=== PATIENT | female | born 1950 | race Caucasian/White ===

== ENCOUNTER 2017-10-24 14:22 | Outpatient (CLI) | payer OTHER | END 2017-10-24 14:27 | disposition home or self-care (01) | LOC: RAD 14:22 | DX: Z01.818 Encounter for other preprocedural examination (principal) ==

== ENCOUNTER 2017-10-31 12:00 | Inpatient (IN) | payer OTHER ==
[~2017-10-31] VITALS: Ht 154.9 cm; Wt 54.4 kg
[2017-10-31] MEDS ORDERED: CRESTOR20 MG PO (14:18)
[2017-10-31] MEDS ORDERED: ZANTAC300 MG PO (14:19)
[2017-10-31] MEDS ORDERED: [UNRECOGNIZED DRUG - SUPPLY] (14:19)
[2017-10-31] MEDS ORDERED: CO Q-1050 MG PO (14:19)
[2017-10-31] MEDS ORDERED: ASA81 MG PO (14:19)
[2017-10-31] MEDS ORDERED: CENTRUM SILVER1 EAC2 PO (14:20)
[2017-10-31] MEDS ORDERED: CALCIUM500 M2 PO (14:20)
[2017-10-31] MEDS ORDERED: VITAMIN D400 UNI5 PO (14:20)
[2017-10-31] MEDS ORDERED: PROLIA60 MG/1 ML (14:21)
[2017-10-31] MEDS ORDERED: XANAX0.25 MG PO (14:21)
== END 2017-11-06 17:57 | disposition home or self-care (01) | DRG 331 ==
LOC: SURH 11-03 05:37 → O/R 11-03 05:37 → OB/GYN 11-03 07:00 → SURH 11-03 14:40
PROVIDERS: Colon & Rectal Surgery
PROC: 0DJD8ZZ Inspection of Lower Intestinal Tract, Via Natural or Artificial Opening Endoscopic (ICD-10-PCS; 2017-11-03)
PROC: 0DTN4ZZ Resection of Sigmoid Colon, Percutaneous Endoscopic Approach (ICD-10-PCS; principal; 2017-11-03 07:00)
DX: K57.32 Diverticulitis of large intestine without perforation or abscess without bleeding (principal); M72.2 Plantar fascial fibromatosis

== ENCOUNTER 2017-11-13 13:03 | Emergency (ER) | payer OTHER ==
[~2017-11-13] VITALS: Ht 154.9 cm; Wt 53.1 kg
[~2017-11-13 13:03] MED LIST: ASA81 MG PO; CALCIUM500 M2 PO; CENTRUM SILVER1 EAC2 PO; CO Q-1050 MG PO; CRESTOR20 MG PO; PROLIA60 MG/1 ML; VITAMIN D400 UNI5 PO; XANAX0.25 MG PO; ZANTAC300 MG PO; [UNRECOGNIZED DRUG - SUPPLY]
== END 2017-11-13 18:19 | disposition home or self-care (01) ==
LOC: ER 13:03
DX: R06.02 Shortness of breath (principal)

== ENCOUNTER 2018-10-17 09:00 | Day surgery (SDC) | payer OTHER | END 2018-10-17 14:30 | disposition home or self-care (01) | LOC: AMB-ENDOS 09:00 | DX: K62.5 Hemorrhage of anus and rectum (principal); K64.8 Other hemorrhoids; L92.8 Other granulomatous disorders of the skin and subcutaneous tissue; Z12.11 Encounter for screening for malignant neoplasm of colon ==

== ENCOUNTER 2020-06-03 06:41 | Day surgery (SDC) | payer OTHER | END 2020-06-03 10:55 | disposition home or self-care (01) | LOC: AMB-ENDOS 06:41 | PROVIDERS: ATTEND Colon & Rectal Surgery | DX: K62.89 Other specified diseases of anus and rectum (principal); Z12.11 Encounter for screening for malignant neoplasm of colon; K64.8 Other hemorrhoids ==

== ENCOUNTER 2021-10-08 07:09 | Outpatient (CLI) | payer OTHER | END 2021-10-08 07:12 | disposition home or self-care (01) | LOC: NUCLEAR 07:09 | PROVIDERS: ATTEND Internal Medicine Cardiovascular Disease | DX: I11.9 Hypertensive heart disease without heart failure (principal); I20.8 Other forms of angina pectoris; E78.00 Pure hypercholesterolemia, unspecified | CPT/HCPCS: 78452; 93017; A9500; J0153 ==